=== PATIENT | male | born 1955 | race Caucasian/White ===

== ENCOUNTER 2017-01-09 15:57 | Inpatient (IN) | payer OTHER ==
[~2017-01-09 15:57] MED LIST: BIVALIRUDIN 250 MG/5 ML VIAL IV ONE; IOPAMIDOL (ISOVUE-370) 150 ML BTL IV ONE; LIDOCAINE 1% 300 MG/30 ML SDV ONE; MIDAZOLAM 2 MG/2 ML VIAL ONE; fentaNYL 100 MCG/2 ML INJ ONE
[2017-01-09] MEDS ORDERED: MIDAZOLAM 2 MG/2 ML VIAL ONE (16:16)
[2017-01-09] MEDS ORDERED: fentaNYL 100 MCG/2 ML INJ ONE (16:16)
[2017-01-09] MEDS ORDERED: HEPARIN 10,000 UNIT/10 ML MDV ONE (16:20)
[2017-01-09] MEDS ORDERED: CLOPIDOGREL BISULFATE 75 MG TAB ONE (16:36)
[2017-01-09] MEDS ORDERED: OXYCODONE/APAP 5/325 TAB PO PRN (16:50)
[2017-01-09] MEDS ORDERED: ONDANSETRON 4 MG/2 ML VIAL IVP PRN (16:50)
[2017-01-09] MEDS ORDERED: CLOPIDOGREL BISULFATE 75 MG TAB PO ONE (16:50)
[2017-01-09] MEDS ORDERED: NITROGLYCERIN 0.4 MG BTL SL PRN (16:50)
[2017-01-09] MEDS ORDERED: LORazepam 2 MG/ML INJ IVP PRN (16:50)
[2017-01-09] MEDS ORDERED: TEMAZEPAM 15 MG CAP PO PRN (16:50)
[2017-01-09] MEDS ORDERED: ATROPINE SULFATE 1 MG/10 ML SYR IVP PRN (16:50)
--- NOTE | 2017-01-09 16:56 | GHP ---
[f rep st] HISTORY AND PHYSICAL DATE OF ADMISSION: 01/09/[address] INDICATION: ST-segment elevation myocardial infarction. HISTORY OF PRESENT ILLNESS: The patient is 61 years old. He has a history of aortic valve replacem ent, who presented to the [facility] with acute substernal chest pressure beginnin g at 11 o'clock this morning. It was associated with some diaphoresis and dizziness. He was immedi ately taken to the [facility] emergency department. There the patient had ongoing pains with ST hortensia vation in the lateral leads. He was brought by helicopter to [facility] for further evaluati on. I met him on the laborer cook house table where he was having minimal discomfort. He denies PND or ortho pnea. He has had no syncope or near syncope. ALLERGIES: None. HOME MEDICATIONS: Include albuterol inhaler, Coreg, digoxin, Lasix, lisinopril hydrocodone, and pro pafenone. PAST MEDICAL HISTORY: Significant for paroxysmal atrial fibrillation/SVT. PAST SURGICAL HISTORY: Aortic valve repair. SOCIAL HISTORY: Tobacco unknown. Alcohol unknown. FAMILY HISTORY: Noncontributory. REVIEW OF SYSTEMS: GENERAL: Negative for fever, chills, nausea, vomiting, diarrhea, constipation, dysuria, bruising, bleeding, hematemesis, melena, or hemoptysis. PHYSICAL EXAMINATION: VITAL SIGNS: On arrival to the laborer cook house, blood pressure was 150/70, heart ra te is 85. GENERAL: This is a well-nourished male, resting flat on the laborer cook house table. NECK: He h ad no JVP. CHEST: Clear. CARDIAC: Regular rate and rhythm without gallop. ABDOMEN: Soft. EXTR EMITIES: No edema. DATA: EKG reveals sinus rhythm at 63 beats per minute without discomfort; it is normal. Otherwise, there are minimal ST changes in V4 through V6. IMPRESSION AND PLAN: Acute coronary syndrome/ST-segment elevation myocardial infarction with onset at 11 o'clock. The patient will have a coronary angiogram with directed therapy. We will pursue [facility] secondary prevention and clinical followup. /[id number]/MODL
--- NOTE | 2017-01-09 16:57 | PDDXCAT ---
Diagnostic Cath Note - . Date: 01/09/17 Creative Art Director: Jamey Indication: other (STEMI) - Procedure Access: right groin Procedure: left heart catheterization, coronary angiography - Materials Left Heart Cath size: 6F Left Heart Cath materials: standard multipack (JL4, JR4, pigtail) - Findings-Left Heart Catheterization LM: Unobstructed LAD: Subtotal proximally LCX: Unobstructed RCA: Dominant unobstructed Complications: None Estimated blood loss: <50ml Closure method: Angioseal Assessment: ST segment elevation myocardial infarction with proximal LAD stenosis. Plan: Directed PCI Intervention: Patient was anticoagulated with heparin. Using Pranay 6 Japanese JL 4.5 guiding catheter left main coronary selectively intubated. Using a 0.014 luge wire the LAD lesion was crossed. QTC was performed. 4.0 x 16 mm synergy stent was placed across the lesion and deployed using a single inflation x1. Repeat angiogram showed THANG grade [address] segment elevation myocardial infarction status post successful PCI stenting of the LAD. Aggressive secondary prevention with beta karyn Pranay inhibition high-dose statin therapy dual antiplatelet therapy and clinical follow-up. Patient Problems: Problems Problem Status Onset NSTEMI (non-ST elevated myocardial infarction) Acute
--- NOTE | 2017-01-09 16:58 | CPEKG ---
Heart Rate: 84 RR Interval: 714 P-R Interval: 220 QRSD Interval: 96 QT Interval: 368 QTC Interval: 436 P [place]: 50 QRS [place]: 71 T Wave [place]: 0 EKG Severity - ABNORMAL ECG - EKG Impression: SINUS RHYTHM EKG Impression: FIRST DEGREE AV BLOCK EKG Impression: MINIMAL ST DEPRESSION, ANTEROLATERAL LEADS Electronically Signed By: Evans Francois 10-Jan-2017 12:44:06
[2017-01-09] MEDS ORDERED: NS 1,000 ML IV SCH (17:00)
[2017-01-09 17:51] LABS: CREATINE KINASE-MB FRACTION 3.11 ng/mL (0-3.19); TROPONIN I 0.169 ng/mL (0-0.034)
[2017-01-09] MEDS: HYDROCODONE/APAP 5/325 TAB PO PRN ×2 (19:05→23:11)
[2017-01-09] MEDS: CARVEDILOL 6.25 MG TAB PO SCH (19:05)
[2017-01-09 20:15] LABS: TROPONIN I 0.542 ng/mL (0-0.034)
[2017-01-09 20:23] LABS: CREATINE KINASE-MB FRACTION 3.65 ng/mL (0-3.19)
[2017-01-09 20:33] LABS: CK-MB INTERPRETATION NEGATIVE (NEGATIVE)
[2017-01-09 23:54] LABS: CREATINE KINASE-MB FRACTION 8.18 ng/mL (0-3.19)
[2017-01-10 00:03] LABS: CK-MB INTERPRETATION POSITIVE (NEGATIVE)
[2017-01-10 04:54] LABS: % IMMATURE GRANULYOCYTES 0.3 % (0.0-1.1); ABSOLUTE IMMATURE GRANULOCYTES 0.02 10^3/uL (0.00-0.10); ADD DIFF? NO; ADD MORPH? NO; ADD SCAN? NO; ATYPICAL LYMPHOCYTE FLAG 0 (0-99); FRAGMENT RBC FLAG 10 (0-99); HEMATOCRIT 40.1 % (40.0-51.0); HEMOGLOBIN 13.1 g/dL (13.7-17.5); LEFT SHIFT FLG 0 (0-99); LIPEMIA HEMOLYSIS FLAG 80 (0-99); MEAN CELL HEMOGLOBIN CONCENTR. 32.7 g/dL (32.4-36.7); MEAN PLATELET VOLUME 10.2 fL (8.7-11.7); PLATELET CLUMPS FLAG 10 (0-99); PLATELET COUNT 191 10^3/uL (150-400); RED BLOOD CELL COUNT 4.22 10^6/uL (4.40-6.38); RED CELL DISTRIBUTION WIDTH 14.8 % (11.5-15.2)
[2017-01-10 06:24] LABS: ALANINE AMINOTRANSFERASE 29 IU/L (21-72); ALBUMIN 2.9 g/dL (3.5-5.0); ALKALINE PHOSPHATASE 48 IU/L (38-126); ANION GAP 6 mEq/L (8-16); ASPARTATE AMINOTRANSFERASE 43 IU/L (17-59); BILIRUBIN,TOTAL 1.3 mg/dL (0.1-1.4); CARBON DIOXIDE 25 mEq/l (22-31); CHLORIDE 107 mEq/L (97-110); CHOLESTEROL 132 mg/dL (140-220); CHOLESTEROL/HDL RATIO 2.06 RATIO (1.00-4.97); CREATININE 0.7 mg/dL (0.7-1.3); GLOMERULAR FILTRATION RATE > 60; GLUCOSE 82 mg/dL (70-100); HIGH DENSITY LIPOPROTEIN 64 mg/dL (40-65); LACTATE DEHYDROGENASE 454 IU/L (313-618); LDL/HDL RATIO 0.92 RATIO (1.00-3.64); LOW DENSITY LIPOPROTEIN 59 mg/dL (80-100); MAGNESIUM 1.7 mg/dL (1.6-2.3); NON-HIGH DENSITY LIPOPROTEIN 68 mg/dL (90-129); POTASSIUM 4.1 mEq/L (3.5-5.2); SODIUM 138 mEq/L (134-144); TOTAL PROTEIN 5.4 g/dL (6.3-8.2); TRIGLYCERIDE 46 mg/dL (40-150); VERY LOW DENSITY LIPOPROTEINS 9 mg/dL (8-25)
[2017-01-10 06:44] LABS: BILIRUBIN-CONJUGATED 0.4 mg/dL (0.0-0.5); BILIRUBIN-UNCONJUGATED 0.9 mg/dL (0.0-1.1); CK-MB INTERPRETATION POSITIVE (NEGATIVE)
[2017-01-10 07:43] VITALS: BP 120/70; PULSE 53; RESP 13; TEMP 97.8; O2SAT 96
--- NOTE | 2017-01-10 07:47 | PDDCSUM ---
Discharge Summary Discharge Summary: Admission date 01/09/2017, discharge date 01/10/2017. Admission diagnosis ST segment elevation myocardial infarction. Discharge diagnosis ST segment elevation myocardial infarction status post PCI and stenting of the LAD. History of aortic valve replacement. History of paroxysmal atrial fibrillation on high risk medication. Follow-up Dr. Byrd 7-10 days. Special attention to chronic anti rhythmic therapy going forward. Procedures done during this hospitalization PCI and stenting of the LAD. Medications: Rythmol discontinued. Please see attached form 17 for remainder of medications. Hospital course: 61-year-old male admitted from [place] with ST segment elevation myocardial infarction. He was directly brought to the cardiac catheterization lab where he underwent PCI and stenting of the proximal LAD with a 4 mm synergy stent. He was started on dual antiplatelet therapy which he tolerated well. He feels markedly improved this morning. Metabolic profile shows cardiac injury with minimal elevation in CPK. On the day of discharge heart rate was 72 blood pressure was 130/70 Well-nourished well-developed male no distress. Chest was clear. Cardiac exam revealed no S4. His abdomen was soft nontender with good bowel sounds. Puncture site was healing well without ecchymosis erythema or edema. Patient has been continued on dual antiplatelet therapy for 1 year. This was discussed at length with him and his . Will pursue aggressive secondary prevention including high-dose statin therapy. He is on Pranay inhibition and beta -karyn. Echocardiogram pending for LV systolic function with repeat assessment of risk in 7-10 days. Special attention to anti rhythmic therapy. I have stopped his Rythmol in the short term in the setting of an acute IL. Considerations for amiodarone versus sotalol going forward. Questions were answered. He is discharged home in stable condition.
[2017-01-10] MEDS: CARVEDILOL 6.25 MG TAB PO SCH (08:51)
[2017-01-10] MEDS ORDERED: LISINOPRIL 2.5 MG TAB PO SCH (09:00)
[2017-01-10] MEDS ORDERED: ATORVASTATIN CALCIUM 40 MG TAB PO SCH (09:00)
[2017-01-10] MEDS ORDERED: CLOPIDOGREL BISULFATE 75 MG TAB PO SCH (09:00)
[2017-01-10] MEDS ORDERED: ASPIRIN EC 325 MG TAB PO SCH (09:00)
--- NOTE | 2017-01-10 09:00 | CPEKG ---
Heart Rate: 59 RR Interval: 1017 P-R Interval: 208 QRSD Interval: 84 QT Interval: 404 QTC Interval: 401 P [place]: 36 QRS [place]: 76 T Wave [place]: 131 EKG Severity - ABNORMAL ECG - EKG Impression: SINUS RHYTHM EKG Impression: LOW VOLTAGE IN FRONTAL LEADS EKG Impression: ABNORMAL T, CONSIDER ISCHEMIA, ANT-LAT LEADS Electronically Signed By: Evans Francois 10-Jan-2017 12:44:19
--- NOTE | 2017-01-10 10:23 | ECHO ---
[id number] + + [address] : : [place] [address] : : [phone] + Adult Echocardiographic Report + ---+ :Name: LUIS ALBERTO GLASS BStudy Date: 01/10/2017 07:58 AM : : Hospital Admission Number: [id number] Location: 218: :: 1955 Gender: Male Height: 73 in : :Age: 61 yrs Race: SHASTA,White Weight: 210 lb : :Reason For Study: Post W[place]/LAD stent : : BSA: 2.2 meters2 : :History: AVR : + ---+ MMode/2D Measurements \T\ Calculations IVSd: 0.85 cm LVIDd: 4.9 cm FS: 35.8 % Ao root diam: LVPWd: 0.86 cm LVIDs: 3.2 cm EDV(Teich): 4.3 cm 113.5 ml LA dimension: ESV(Teich): 5.2 cm 39.6 ml EF(Teich): 65.1 % LVLd ap4: 8.3 cm SV(MOD-sp4): EDV(MOD-sp4): 83.0 ml 115.0 ml LVLs ap4: 6.8 cm ESV(MOD-sp4): 32.0 ml EF(MOD-sp4): 72.2 % Normal Measurement Values: + + :LVIDd (3.5-5.7cm) IVSd (0.6-1.1cm) LVPWd (0.6-1.1cm) Aortic Root (2.0-3.7cm)Left Atrium (1.5-4.0cm): :LV Vol(d) (76-115ml) LV Vol(s) (29-48ml) Ejec Fraction (50-65%)PV Chava (0.6- 1.2m/s) TV Chava (0.4-1.0m/s) : :MV E Chava (0.8-1.0m/s)MV A Chava (0.3-1.0m/s)LVOT Chava (0.7-1.2m/s) Asc Ao Chava ( 0.9-1.8m/s) : + + Doppler Measurements \T\ Calculations MV E max chava: 64.7 cm/sec Ao mean P.0 mmHg TR max chava: 248.4 cm/sec MV A max chava: 78.5 cm/sec Ao V2 mean: 97.0 cm/sec TR max P.7 mmHg MV E/A: 0.82 Ao V2 VTI: 29.4 cm RAP systole: 5.0 mmHg RVSP(TR): 29.7 mmHg Left Ventricle The left ventricle is normal in size. There is normal left ventricular wall thickness. Left ventricular systolic function is normal. Ejection Fraction = 60-65%. No regional wall motion abnormalities noted. Right Ventricle The right ventricle is normal in size and function. Atria The left atrium is mild to moderately dilated. Right atrial size is normal. The interatrial septum is intact with no evidence for an atrial septal defect. Mitral Valve The mitral valve is normal in structure and function. There is no evidence of mitral valve prolapse. There is no mitral valve stenosis. There is mild mitral regurgitation. Tricuspid Valve Normal tricuspid valve. There is mild tricuspid regurgitation. Right ventricular systolic pressure is normal. Aortic Valve There is a porcine aortic valve. The gradient is normal for this prosthetic aortic valve. Pulmonic Valve The pulmonic valve is normal in structure and function. There is no pulmonic valvular regurgitation. Great Vessels The aortic root is normal size. Pericardium/Pleural There is no pericardial effusion. Conclusion A complete two-dimensional transthoracic echocardiogram was performed (2D, M-mode, Doppler and color flow Doppler). The study was technically limited. Left ventricular systolic function is normal. Ejection Fraction = 60-65%. The left atrium is mild to moderately dilated. There is mild mitral regurgitation. There is mild tricuspid regurgitation. Right ventricular systolic pressure is normal. There is a porcine aortic valve. The gradient is normal for this prosthetic aortic valve. Final Reading Physician: Fredis Lynn signed on 01/10/2017 10:21 AM Ordering Physician: ROBERT QUINTANILLA Performed By: Malini Crain, CS
== END 2017-01-10 11:00 | disposition home or self-care (01) | DRG 247 ==
LOC: FCATH 15:57 → F2W 16:21 → OBSVTOIN 16:50 → F2W 18:18
PROVIDERS: ADMIT Internal Medicine Interventional Cardiology; ATTEND Internal Medicine Interventional Cardiology
PROC: 027034Z Dilation of Coronary Artery, One Artery with Drug-eluting Intraluminal Device, Percutaneous Approach (ICD-10-PCS; principal; 2017-01-09)
DX: I21.02 ST elevation (STEMI) myocardial infarction involving left anterior descending coronary artery (principal); I48.0 Paroxysmal atrial fibrillation; Z95.4 Presence of other heart-valve replacement; Z79.01 Long term (current) use of anticoagulants
CPT/HCPCS: C1760; C1769; C1874; C1887; C9606; J0583; J1200; J1644; J2250; J3010; Q9967

== ENCOUNTER → 2017-01-17 | Outpatient (CLI) | payer OTHER | LOC: BHLMT 15:00 | PROVIDERS: ATTEND Internal Medicine Cardiovascular Disease | DX: I35.9 Nonrheumatic aortic valve disorder, unspecified (principal); I48.0 Paroxysmal atrial fibrillation; I25.10 Atherosclerotic heart disease of native coronary artery without angina pectoris; I10 Essential (primary) hypertension; I21.3 ST elevation (STEMI) myocardial infarction of unspecified site; Z95.2 Presence of prosthetic heart valve | CPT/HCPCS: 93005-PO ==

== ENCOUNTER 2017-10-16 12:05 | Observation (INO) | payer OTHER ==
--- NOTE | 2017-10-16 11:47 | PDHPUP ---
History & Physical Update H&P update statement: This history and physical update is based on an assessment of the patient which was completed after admission or registration (within 24 hours), but prior to the surgery/procedure. H&P update: H&P reviewed & patient examined (patient with a fib and long pauses complete heart block....intermittent V tach), no change in patient's condition since H&P completed
--- NOTE | 2017-10-16 11:48 | PDPROPOC ---
Sedation Plan of Care Sedation Plan of Care: mental status noted ASA Classification: ASA 3 Planned drugs: fentanyl, midazolam, other (etomidate) Mallampati Score: Class 3 Mallampati Reference Image: Patient passed 3-3-2 rule?: No
[2017-10-16] MEDS ORDERED: NS 1,000 ML IV ONE (12:12)
[2017-10-16] MEDS ORDERED: BACITRACIN IRRIGATION/NS 50,000 UNITS/1,000 ML BTL IRR ONE (12:12)
[2017-10-16] MEDS ORDERED: diphenhydrAMINE 25 MG CAP PO ONE (12:12)
[2017-10-16] MEDS ORDERED: ceFAZolin 2 GM/SWFI 2 GM/20 ML SYR IVP ONE (12:12)
[2017-10-16] MEDS ORDERED: DIAZEPAM 5 MG TAB PO ONE (12:12)
--- NOTE | 2017-10-16 12:31 | CPEKG ---
Heart Rate: 73 RR Interval: 822 QRSD Interval: 86 QT Interval: 416 QTC Interval: 459 QRS [place]: 56 T Wave [place]: 7 EKG Severity - ABNORMAL ECG - EKG Impression: ATRIAL FIBRILLATION EKG Impression: VENTRICULAR PREMATURE COMPLEX Electronically Signed By: Evans Gutierrez 16-Oct-2017 16:01:03
[2017-10-16 12:41] LABS: PLATELET COUNT 175 10^3/uL (150-400)
[2017-10-16] MEDS ORDERED: LIDOCAINE 1% 300 MG/30 ML SDV ONE ×2 (12:48→15:34)
[2017-10-16] MEDS ORDERED: IOPAMIDOL (ISOVUE-300) 50 ML VIAL ONE ×3 (12:48→15:21)
[2017-10-16] MEDS ORDERED: MIDAZOLAM 2 MG/2 ML VIAL ONE (12:48)
[2017-10-16] MEDS ORDERED: fentaNYL 100 MCG/2 ML INJ ONE (12:48)
[2017-10-16] MEDS ORDERED: BUPIVACAINE 0.5% 10 ML SDV ONE ×3 (12:49→15:34)
[2017-10-16] MEDS ORDERED: LIDO/EPI 1% **for epidural** 30 ML SDV ONE ×2 (12:49→15:34)
[2017-10-16 12:50] LABS: INR 1.17 (0.83-1.16); PROTIME(PATIENT) 15.1 SEC (12.0-15.0)
[2017-10-16] MEDS ORDERED: MIDAZOLAM 2 MG/2 ML VIAL IVP ONE (12:54)
[2017-10-16] MEDS ORDERED: ATROPINE SULFATE 1 MG/10 ML SYR IVP ONE (12:54)
[2017-10-16] MEDS ORDERED: BENZOCAINE UNIT DOSE SPRAY HURRICAINE MM ONE (12:54)
[2017-10-16] MEDS ORDERED: fentaNYL 100 MCG/2 ML INJ IVP ONE (12:54)
[2017-10-16] MEDS ORDERED: ETOMIDATE 40 MG/20 ML INJ ONE ×2 (13:00→14:43)
--- NOTE | 2017-10-16 13:57 | PDTEE1 ---
NOEMY Cardioversion Procedure Procedure: electrical cardioversion, transesophageal echo Indications: atrial fibrillation, other (NSVT) Consent: signed and in chart Anticoagulation: other (Aspirin and Plavix) Procedural Details: Pads were placed in anterior-posterior position. NOEMY probe was advanced and standard images obtained. There is no evidence of left atrial or left atrial appendage thrombus. Synchronized cardioversion attempt #1: 300J Results: normal sinus rhythm Conclusions: successful NOEMY cardioversion Patient Problems: Problems Problem Status Onset Atrial fibrillation Acute Ischemic cardiomyopathy Acute Nonsustained ventricular tachycardia Acute NSTEMI (non-ST elevated myocardial infarction) Acute - ICD10 Problem Qualifiers (1) Atrial fibrillation Qualifiers: Atrial fibrillation type: persistent Qualified Code(s): I48.1 - Persistent atrial fibrillation (2) Nonsustained ventricular tachycardia (3) Ischemic cardiomyopathy
--- NOTE | 2017-10-16 14:47 | EPPROC ---
Electrophysiology Procedure Note: PROCEDURE: MRI conditional dual chamber automatic implantable cardioverter- defibrillator implantation DATE OF PROCEDURE: 10/16/17 DEVICE: Ilivia 7 -Ely DF4 ProMRI [id number], serial #[id number]. MRI compatible device. LEADS: The atrial lead is a Biotronik Solia S 45, serial # [id number]. The ventricular lead is a Biotronik Plexa ProMRI SD 65/18, serial # [id number]. COMPLICATIONS: None JOURNEYMAN MILLWRIGHT: Ab Byrd MD INDICATION AND APPROPRIATE USE CRITERIA: The device is being used as a primary prevention on the basis of MADIT II criteria. The patient has ischemic cardiomyopathy with reduced EF <35%. He has atrial fibrillation and intermittent complete heart block s/p cardioversion requiring dual chamber pacing functionality and rhythm discrimination to avoid inappropriate shock. PROCEDURE IN DETAIL: After informed consent was obtained and n.p.o. status was confirmed, the region of the left subclavicular fossa was cleaned, prepped and draped in a sterile fashion. Approximately 30 mL of 1% lidocaine was utilized for local anesthesia. The skin was sharply incised with a #10 blade. Electrocautery and local pressure were used for hemostasis. Sharp and blunt dissection was used to form a pacemaker pocket overlying the pectoralis major fascia. With access to the left subclavian directly there was no evidence of direct connection to the right heart except via bridging collaterals. We therefore abandoned and closed the pocket on the left side with a 3 layered repair, and performed venography from the right side. The region of the right subclavicular fossa was then cleaned, prepped and draped in a sterile fashion. Approximately 30 mL of 1% lidocaine was utilized for local anesthesia. The skin was sharply incised with a #10 blade. Electrocautery and local pressure were used for hemostasis. Sharp and blunt dissection was used to form a pacemaker pocket overlying the pectoralis major fascia. An 18-gauge Cook needle was used to gain access to the right subclavian vein x 2. J wires were advanced into the inferior vena cava. A 7-F peel-away sheath was advanced over the lateral wire. Wire and stylet were removed. Ventricular lead was manipulated with care into the RV apex under direct fluoroscopic guidance and screwed into place. Threshold was tested and found to be 0.5 V at 0.4 ms width. R-wave amplitude was measured at 8.8 mV. Lead impedance was 549 Ohms. The lead was sutured in place with #0 Ethibond. The medial wire was used to place a second peel-away sheath wire and dilator was removed and a second pacer lead was manipulated with care into the right atrial appendage and screwed into place. The threshold was 1.0 V at 0.4 ms width. P-wave amplitude was 1.7 mV, lead impedance was 476 Ohms. The peel away sheath was removed and the leads were sutured in place with a #0 Ethibond. The pocket was thoroughly flushed and checked for bleeding. Hemostasis was established. The antibiotic soaked gauze was removed from the pocket. The atrial lead serial number was checked and placed in the upper pole lead housing of the pulse generator and set screw firmly applied. The procedure was repeated for the RV lead. The device was placed in the pocket and sutured in place with # 0 Ethibond. The skin was closed with a 3-layered 3-0 Vicryl, 2-0 Vicryl and 4-0 Monocryl repair with excellent wound edge opposition and hemostasis documented. The patient returned to the post cath recovery unit in good and stable condition where a stat postoperative chest x-ray and EKG will be obtained. FINAL IMPRESSION: Successful elective MRI compatible dual chamber automatic implantable cardioverter-defibrillator insertion without immediate complication. Patient Problems: Problems Problem Status Onset Atrial fibrillation Acute Ischemic cardiomyopathy Acute Nonsustained ventricular tachycardia Acute NSTEMI (non-ST elevated myocardial infarction) Acute - ICD10 Problem Qualifiers (1) Atrial fibrillation Qualifiers: Atrial fibrillation type: persistent Qualified Code(s): I48.1 - Persistent atrial fibrillation (2) Nonsustained ventricular tachycardia (3) Ischemic cardiomyopathy
[2017-10-16] MEDS ORDERED: NITROGLYCERIN 0.4 MG BTL SL PRN (16:58)
[2017-10-16] MEDS ORDERED: TEMAZEPAM 15 MG CAP PO PRN (16:58)
--- NOTE | 2017-10-16 17:33 | CPEKG ---
Heart Rate: 81 RR Interval: 741 P-R Interval: 180 QRSD Interval: 84 QT Interval: 376 QTC Interval: 437 P [place]: 8 QRS [place]: 74 T Wave [place]: -12 EKG Severity - ABNORMAL ECG - EKG Impression: SINUS RHYTHM EKG Impression: MULTIFORM VENTRICULAR PREMATURE COMPLEXES Electronically Signed By: Evans Gutierrez 17-Oct-2017 11:09:19
[2017-10-16] MEDS: CARVEDILOL 3.125 MG TAB PO SCH (18:25)
[2017-10-16] MEDS: HYDROCODONE/APAP 5/325 TAB PO PRN (22:55)
[2017-10-17] MEDS: HYDROCODONE/APAP 5/325 TAB PO PRN (04:10)
[2017-10-17 04:17] LABS: PLATELET COUNT 141 10^3/uL (150-400)
--- NOTE | 2017-10-17 08:54 | CPEKG ---
Heart Rate: 79 RR Interval: 759 P-R Interval: 176 QRSD Interval: 86 QT Interval: 416 QTC Interval: 477 P [place]: -8 QRS [place]: 91 T Wave [place]: 17 EKG Severity - ABNORMAL ECG - EKG Impression: SINUS RHYTHM EKG Impression: VENTRICULAR PREMATURE COMPLEX EKG Impression: RIGHT AXIS DEVIATION EKG Impression: BORDERLINE PROLONGED QT INTERVAL Electronically Signed By: Evans Gutierrez 17-Oct-2017 11:08:50
[2017-10-17] MEDS ORDERED: CLOPIDOGREL BISULFATE 75 MG TAB PO SCH (09:00)
[2017-10-17] MEDS ORDERED: ATORVASTATIN CALCIUM 40 MG TAB PO SCH (09:00)
[2017-10-17] MEDS ORDERED: ASPIRIN 81 MG CHEWABLE TAB PO SCH (09:00)
[2017-10-17] MEDS ORDERED: LISINOPRIL 10 MG TAB PO SCH (09:00)
[2017-10-17] MEDS ORDERED: FUROSEMIDE 40 MG TAB PO SCH (09:00)
[2017-10-17] MEDS: CARVEDILOL 3.125 MG TAB PO SCH (09:29)
[2017-10-17 11:38] VITALS: BP 136/92; PULSE 77; RESP 12; TEMP 98; O2SAT 98
--- NOTE | 2017-10-17 18:55 | GDS ---
[f rep st] DISCHARGE SUMMARY ADMIT DIAGNOSIS: 1. Ischemic cardiomyopathy with ejection fraction less than 35%. 2. Atrial fibrillation. 3. Intermittent complete heart block. 4. Planned placement of dual-chamber automatic implantable cardioverter. DISCHARGE DIAGNOSIS: Status post successful placement of MRI-conditional dual chamber automatic impl antable cardioverter-defibrillator. COURSE OF HOSPITALIZATION: This gentleman is well-known to Dr. Ab Byrd and is followed closely in clinic. He has ischemic cardiomyopathy with a reduced ejection fraction less than 35%. He has at rial fibrillation and intermittent complete heart block, status post cardioversion, requiring dual ch ramo pacing functionality and rhythm to avoid inappropriate shock. It was recommended to place an M RI-compatible device. The patient was agreeable to proceed with placement of the ICD pacemaker. He was taken to the medical laboratory technicians by Dr. Ab Byrd, who successfully placed a Biotronik dual-chamber AICD. There were no complications. He was taken to PCU for overnight observation where he has done well. At this time, he currently is stable for discharge. MEDICATIONS: He will go home on digoxin 250 mcg daily, Lipitor 80 mg daily, Plavix 75 mg daily, Nitr ostat 0.4 mg sublingually as needed, Restoril 15 mg at bedtime as needed, [place] 5/325 one tablet douglas y as needed, aspirin 81 mg daily, lisinopril 10 mg daily, Coreg 3.125 mg twice daily, Lasix 40 mg charles ly. ALLERGIES: He has no known allergies. EXAM: VITAL SIGNS: On day of discharge, blood pressure 136/92, heart rate 77, blood pressure was re taken, the 2nd reading 124/84. HEART: Rate regular. No murmurs, rubs, gallops. LUNGS: Clear to auscultation. No wheezes, rales, or rhonchi. CHEST: Right incision site intact with no bleeding, induration and with mild tenderness. DISCHARGE PLAN: He will be discharged home with instructions not use right arm for 4 weeks above rena ulder level. He is to avoid heavy lifting, pushing, pulling greater than 10 pounds for 4 weeks. He will follow up in the pacemaker wound clinic in 1 week. Appointments have been made. He will follow up with Dr. Byrd or Melida HASTINGS in 1 month. At this time, he currently is stable for discharge. /[id number]/MODL
== END 2017-10-17 15:56 | disposition home or self-care (01) ==
LOC: FCATH 12:05 → F2W 15:59
PROVIDERS: ADMIT Internal Medicine Cardiovascular Disease; ATTEND Internal Medicine Cardiovascular Disease
PROC: 02HK3KZ Insertion of Defibrillator Lead into Right Ventricle, Percutaneous Approach (ICD-10-PCS; principal; 2017-10-16)
PROC: 02H63KZ Insertion of Defibrillator Lead into Right Atrium, Percutaneous Approach (ICD-10-PCS; principal; 2017-10-16)
PROC: B5191ZZ Fluoroscopy of Inferior Vena Cava using Low Osmolar Contrast (ICD-10-PCS; principal; 2017-10-16)
PROC: [UNRECOGNIZED PROCEDURE] (principal; 2017-10-16)
PROC: B245ZZ4 Ultrasonography of Left Heart, Transesophageal (ICD-10-PCS; principal; 2017-10-16)
PROC: 5A2204Z Restoration of Cardiac Rhythm, Single (ICD-10-PCS; principal; 2017-10-16)
PROC: 0JH608Z Insertion of Defibrillator Generator into Chest Subcutaneous Tissue and Fascia, Open Approach (ICD-10-PCS; principal; 2017-10-16)
DX: I25.5 Ischemic cardiomyopathy (principal); I48.1 Persistent atrial fibrillation; I44.2 Atrioventricular block, complete; I25.10 Atherosclerotic heart disease of native coronary artery without angina pectoris; I25.2 Old myocardial infarction; Z95.5 Presence of coronary angioplasty implant and graft; Z95.2 Presence of prosthetic heart valve
CPT/HCPCS: 33249; 71045; 71046; 92960; 93005; 93312; G0378; C1721; C1895; C1898; J0461; J0690; J2250; J3010; Q9967

== ENCOUNTER 2017-12-03 12:57 | Day surgery (SDC) | payer OTHER ==
[2017-12-03] MEDS ORDERED: ATROPINE SULFATE 1 MG/10 ML SYR IVP ONE (12:58)
[2017-12-03] MEDS ORDERED: MIDAZOLAM 2 MG/2 ML VIAL IVP ONE (12:58)
[2017-12-03] MEDS ORDERED: BENZOCAINE UNIT DOSE SPRAY HURRICAINE MM ONE (12:58)
[2017-12-03] MEDS ORDERED: NS 500 ML IV ONE (12:58)
[2017-12-03] MEDS ORDERED: fentaNYL 100 MCG/2 ML INJ IVP ONE (12:58)
--- NOTE | 2017-12-03 13:18 | CPEKG ---
Heart Rate: 70 RR Interval: 857 P-R Interval: 180 QRSD Interval: 146 QT Interval: 416 QTC Interval: 449 P [place]: 0 QRS [place]: -81 T Wave [place]: 88 EKG Severity - ABNORMAL ECG - EKG Impression: VENTRICULAR-PACED COMPLEXES Electronically Signed By: Evans Francois 03-Dec-2017 17:24:54
[2017-12-03] MEDS ORDERED: ETOMIDATE 40 MG/20 ML INJ ONE (13:34)
[2017-12-03 13:52] LABS: INR 1.09 (0.83-1.16); PROTIME(PATIENT) 14.3 SEC (12.0-15.0)
--- NOTE | 2017-12-03 14:23 | PDHPUP ---
History & Physical Update H&P update statement: This history and physical update is based on an assessment of the patient which was completed after admission or registration (within 24 hours), but prior to the surgery/procedure. H&P update: H&P reviewed & patient examined, no change in patient's condition since H&P completed
--- NOTE | 2017-12-03 14:24 | PDPROPOC ---
Sedation Plan of Care Sedation Plan of Care: vital signs stable, mental status noted, patient educated of risks, benefits, alternatives, patient can tolerate sedation ASA Classification: ASA 3 Planned drugs: fentanyl, midazolam Mallampati Score: Class 3 Mallampati Reference Image: Patient passed 3-3-2 rule?: Yes
--- NOTE | 2017-12-03 14:49 | PDTEE1 ---
NOEMY Cardioversion Procedure Procedure: electrical cardioversion, transesophageal echo Indications: atrial fibrillation Consent: signed and in chart Anticoagulation: other (Aspirin and Plavix, patient known to be a "bleeder".) Procedural Details: Pads were placed in anterior-posterior position. NOEMY probe was advanced and standard images obtained. There is no evidence of left atrial or left atrial appendage thrombus. Synchronized cardioversion attempt #1: other (275J) Results: normal sinus rhythm Conclusions: successful NOEMY cardioversion Conclusion Comment: The patient had no atrial fibrillation for almost 7 years on Rythmol. Since he is known to not have obstrucive coronary disease post NH and stent, we think Rythmol is the best course of action to prevent atrial fibrillation and reduce the risk of stroke. He is known to be a "bleeder" and already has significant beeding problems on ASA and Plavix, so I am not in favor of starting him on full dose anticoagulation. Also, we will know if he reverts into afib on Rythomol becuase of the pacemaker home monitoring kit. Patient Problems: Problems Problem Status Onset Atrial fibrillation Acute Ischemic cardiomyopathy Acute NSTEMI (non-ST elevated myocardial infarction) Acute Nonsustained ventricular tachycardia Acute
--- NOTE | 2017-12-03 15:11 | CPEKG ---
Heart Rate: 60 RR Interval: 1000 P-R Interval: 224 QRSD Interval: 82 QT Interval: 400 QTC Interval: 400 P [place]: 37 QRS [place]: 72 T Wave [place]: -62 EKG Severity - ABNORMAL ECG - EKG Impression: ATRIAL-PACED COMPLEXES EKG Impression: FIRST DEGREE AV BLOCK EKG Impression: ABNORMAL T, CONSIDER ISCHEMIA, DIFFUSE LEADS EKG Impression: ATRIAL PACING HAS REPLACED VENTRICULAR PACING NOTED ON PRIOR ECG Electronically Signed By: Evans Francois 03-Dec-2017 17:25:25
--- NOTE | 2017-12-05 08:41 | ECHO ---
[email or web address] [place] [id number] Main: [phone] Fax: Transesophageal Echocardiography Name: LUIS ALBERTO GLASS MR#: [id number] Study Date: 12/03/2017 Study Time: 01:37 PM Date of : 1955 Age: 62 year(s) Height: ( ) Weight: ( ) BSA: Gender: Male Examination: NOEMY Indication: Pre Cardioversion Image Quality: Contrast: Requested by: Ab Byrd Heart Rate: Rhythm: BP: / Procedure Staff Clothing Examiner: Theo Obando RDCS Reading Physician: Ab Byrd MD Requesting Provider: NOEMY Exam Details Measurements: Chambers Valvular Assessment AV/MV Valvular Assessment TV/PV Normal Normal Normal Name Value Range Name Value Range Name Value Range EF Range: 40-45 % Additional Measurements: Findings: The ejection fraction is estimated to be 40-45 %. Right Ventricle: There is a pacemaker lead noted in the right ventricle. Left Atrial Appendage: Good color flow doppler in the left atrial appendage. No thrombus in left appendage. Right Atrium: The right atrium is normal in size. Mitral Valve: The mitral valve is normal in appearance. Moderate mitral valve regurgitation is present. Aortic Valve: The aortic valve is tri-leaflet. Tricuspid Valve: The tricuspid valve appears normal. Pulmonic Valve: Patient: LUIS ALBERTO GLASS Study Date: 12/03/2017 Page 1 of 2 01:37 PM The pulmonic valve is normal in appearance and function. Aorta: The aorta is normal. Pericardium: No pericardial effusion. Exam Comments: Proceeded with successful elective DC cardioversion.. l1n (No Signature Object) Patient: LUIS ALBERTO GLASS Study Date: 12/03/2017 Page 2 of 2 01:37 PM [id number]
== END 2017-12-03 15:54 | disposition home or self-care (01) ==
LOC: FCATH 12:57
PROVIDERS: ATTEND Internal Medicine Cardiovascular Disease
PROC: 5A2204Z Restoration of Cardiac Rhythm, Single (ICD-10-PCS; principal; 2017-12-03)
DX: I48.91 Unspecified atrial fibrillation (principal); I35.9 Nonrheumatic aortic valve disorder, unspecified; I25.10 Atherosclerotic heart disease of native coronary artery without angina pectoris; I47.2 Ventricular tachycardia; I25.5 Ischemic cardiomyopathy; Z95.2 Presence of prosthetic heart valve; Z95.810 Presence of automatic (implantable) cardiac defibrillator; Z79.82 Long term (current) use of aspirin; Z79.02 Long term (current) use of antithrombotics/antiplatelets
CPT/HCPCS: J2250; J3010